=== PATIENT | female | born 1985 | race Caucasian/White ===

== ENCOUNTER 2017-04-13 20:02 | Emergency (ER) | payer OTHER ==
--- NOTE | ~2017-04-13 | CR93 ---
[facility] A Service of [facility] RADIOLOGY TEXT RESULTS PATIENT: TO SANDERS LOCATION: SED : 85 UNIT #: [id number] AGE: [address]: Bre Mims PAC SEX: F ORDER DR: [id number] [place] [id number] E MR#: [id number] Acc #: [id number] NAME: TO SANDERS : 1985 SEX: F STUDY DATE/TIME: 04/13/2017 20:43 UNIT: SED ROOM: STUDY DESCRIPTION: CR Elbow Min 3 Views Lt Attending Physician: Bre Mims Pa-C Ordering Physician: Bre Mims Pa-C Primary Care Physician: Rose Peacock M.D. MEDICAL IMAGING REPORT This report is preliminary unless electronic signature is present. EXAM Left elbow series INDICATION Left posterior elbow pain after an injury today. PROCEDURE 3 views of the left elbow. COMPARISON None. FINDINGS No acute fracture. No dislocation or joint effusion. IMPRESSION No acute findings. Dictated by... Glenn Andrade M.D. THIS IS AN ELECTRONICALLY VERIFIED REPORT Glenn Andrade M.D. at 04/14/2017 10:07 AM MORALESD/yohannes TD: 04/13/2017 21:34 JOB #: [id number] MEDICAL IMAGING REPORT [facility] A Service [facility] RADIOLOGY TEXT RESULTS PATIENT: TO SANDERS LOCATION: SED : 85 UNIT #: [id number] AGE: [address]: Bre Mims PAC SEX: F ORDER DR: Page 1 of 1
[~2017-04-13 20:02] MED LIST: CARDIZEM30 MG PO; IBUPROFEN800 MG; IMITREX PO; IMITREX25 MG; LORTAB 5-325 M1 EACH PO; LORTAB 5/500 TA1 TA1 PO; MOTRIN600 M1 PO; NAPROSYN500 MG PO; NO MEDICATIONS; PHENERGAN25 M1 PO; VOLTAREN75 MG PO; ZITHROMAX PO; ZOFRAN ODT4 MG
[2017-04-13] MEDS ORDERED: ALBUTEROL20 ml (20:10)
== END 2017-04-13 21:06 | disposition home or self-care (01) ==
LOC: SED 20:02
DX: S50.02XA Contusion of left elbow, initial encounter (principal); Z88.0 Allergy status to penicillin; Z79.899 Other long term (current) drug therapy; W19.XXXA Unspecified fall, initial encounter; Y92.828 Other wilderness area as the place of occurrence of the external cause
CPT/HCPCS: 73080; 99283